=== PATIENT | female | born 1965 | race Caucasian/White ===

== ENCOUNTER → 2016-09-11 | Outpatient (CLI) | payer BC, OTHER ==
--- NOTE | 2016-09-14 08:13 | MM ---
Reason for exam: follow-up at short interval from prior study. Last mammogram was performed 1 year and 6 months ago. History: Family history of breast cancer in maternal grandmother and breast cancer in mother at age 67. Benign left mammotome panel of the left breast, January 22, 2010. Physical Findings: Nurse did not find any significant physical abnormalities on exam. MG 3D Diag Mammo W/Cad LT CC and MLO view(s) were taken of the left breast. Prior study comparison: March 08, 2015, left breast MG work up mamm w CAD LT. March 01, 2015, bilateral MG screening mammo w CAD. The breast tissue is heterogeneously dense. This may lower the sensitivity of mammography. Previous ultrasound biopsy in the left breast. There is chronic nodularity in the left breast. No significant new findings when compared with previous films. These results were verbally communicated with the patient and result sheet given to the patient on 09/11/16. ASSESSMENT: Benign, BI-RAD 2 RECOMMENDATION: Routine screening mammogram of both breasts in 1 year.
== END | disposition home or self-care (01) ==
LOC: RADMAMWWP 10:15
PROVIDERS: ATTEND Family Medicine
DX: R92.8 Other abnormal and inconclusive findings on diagnostic imaging of breast (principal)
CPT/HCPCS: G0204; G0279

== ENCOUNTER → 2016-12-04 | Outpatient (CLI) | payer OTHER ==
--- NOTE | 2016-12-04 16:29 | CT ---
EXAMINATION TYPE: CT sinus wo con DATE OF EXAM: 12/04/2016 COMPARISON: NONE HISTORY: Chronic sinusitis CT DLP: [address] of the paranasal sinuses was performed in the axial and coronal planes. Bone and soft tissue settings are submitted. The paranasal sinuses demonstrate normal aeration and development. Minimal mucosal thickening right maxillary sinuses. Remaining maxillary sinuses and remaining paranas al sinuses are well aerated. The osteal meatal units are patent bilaterally. The nasal septum is mildly deviated from left to right. No bony destructive changes are seen within the field of view. IMPRESSION: Mild nasal septal deviation. Minimal mucosal thickening right maxillary sinus.
== END | disposition home or self-care (01) ==
LOC: RADCTMAIN 15:58
PROVIDERS: ATTEND Otolaryngology Facial Plastic Surgery
DX: J34.2 Deviated nasal septum (principal); J34.89 Other specified disorders of nose and nasal sinuses; J32.9 Chronic sinusitis, unspecified
CPT/HCPCS: 70486

== ENCOUNTER → 2017-09-09 | Outpatient (CLI) | payer OTHER ==
--- NOTE | 2017-09-09 10:23 | XR ---
Left knee HISTORY: Left knee pain 4 views of the left knee There is a small ossific density present at the lateral aspect of the left knee posteriorly, ankylosi s thought present at the level of the proximal fibula and tibia. Spurring is present at the patellofe moral joint and medial compartment with some joint space loss. No evident effusion. Ossific density a lso present anteriorly at the level of the lateral compartment. Bony excrescence also noted at the la teral aspect of the knee. IMPRESSION: Osteoarthritis. Probable postop changes, posttraumatic change. Consider synovial osteocho ndromatosis, loose body. Osteoarthritis.
--- NOTE | 2017-09-09 10:28 | XR ---
Lumbar spine HISTORY: Low back pain 3 views of the lumbar spine Lumbar vertebral bodies show preserved height. Minimal anterolisthesis grade 1 L4-5. Bone mineralizat ion is mildly reduced. There is multilevel spondylosis. Loss of disc height present L4-5, L5-S1. Scle rosis present in the posterior elements of the lower lumbar spine. Vascular calcifications are noted. There is a mild levoscoliosis centered at L3. Partial sacralization at L5. IMPRESSION: Degenerative disc disease, facet arthropathy and scoliosis.
== END | disposition home or self-care (01) ==
LOC: RADXRMAIN 08:29
PROVIDERS: ATTEND Nurse Practitioner Family
DX: M51.36 Other intervertebral disc degeneration, lumbar region (principal); M46.96 Unspecified inflammatory spondylopathy, lumbar region; M41.86 Other forms of scoliosis, lumbar region; M17.12 Unilateral primary osteoarthritis, left knee
CPT/HCPCS: 72100

== ENCOUNTER → 2018-05-16 | Outpatient (CLI) | payer OTHER | END | disposition home or self-care (01) | LOC: RADMRIMAIN 18:48 | PROVIDERS: ATTEND Physician Assistant | DX: Z53.9 Procedure and treatment not carried out, unspecified reason (principal) ==

== ENCOUNTER → 2020-06-13 | Outpatient (CLI) | payer MEDICARE ==
--- NOTE | 2020-06-14 10:43 | MM ---
Reason for exam: additional evaluation requested from prior study. Last mammogram was performed 3 years and 9 months ago. History: Family history of breast cancer in maternal grandmother and breast cancer in mother at age 67. Benign left mammotome panel of the left breast, January 22, 2010. Took hormonal contraceptives for 1 year beginning at age 15. Physical Findings: Nurse did not find any significant physical abnormalities on exam. MG 3D Diag Mammo W/Cad JACQUELIN Bilateral CC and MLO view(s) were taken. Prior study comparison: September 11, 2016, left breast MG 3d diag mammo w/cad LT. March 08, 2015, left breast MG work up mamm w CAD LT. The breast tissue is heterogeneously dense. This may lower the sensitivity of mammography. Previous mammotome biopsy in the left breast. There is no discrete abnormality including area of concern right breast 3-4 o'clock. These results were verbally communicated with the patient and result sheet given to the patient on 06/13/20. ASSESSMENT: Incomplete: need additional imaging evaluation, BI-RAD 0 RECOMMENDATION: Ultrasound of both breasts. (per order)
--- NOTE | 2020-06-14 10:46 | USB ---
Reason for exam: additional evaluation requested from abnormal screening. History: Family history of breast cancer in maternal grandmother and breast cancer in mother at age 67. Benign left mammotome panel of the left breast, January 22, 2010. Took hormonal contraceptives for 1 year beginning at age 15. US Breast BILAT Technologist: Merlyn Crenshaw Right complete breast ultrasound includes all four quadrants, the retroareolar region and axilla. Finding demonstrates a 0.6 x 0.5 x 0.3cm cystic lesion at 5 o'clock and a 0.9 x 1.0 x 0.4cm cystic lesion at 10 o'clock. Left complete breast ultrasound includes all four quadrants, the retroareolar region and axilla. Finding demonstrates a 0.3 x 0.3 x 0.2cm lesion too small to characterize at 12 o'clock and duct are seen. These results were verbally communicated with the patient and result sheet given to the patient on 06/13/20. ASSESSMENT: Probably benign, BI-RAD 3 RECOMMENDATION: Follow-up diagnostic mammogram and ultrasound of the left breast in 6 months.
== END | disposition home or self-care (01) ==
LOC: RADMAMWWP 13:35
PROVIDERS: ATTEND Family Medicine
DX: R92.8 Other abnormal and inconclusive findings on diagnostic imaging of breast (principal)
CPT/HCPCS: 77066; 76641; G0279; 77062

== ENCOUNTER → 2021-02-12 | Outpatient (CLI) | payer MEDICARE, OTHER ==
--- NOTE | 2021-02-12 12:27 | MM ---
Reason for exam: follow-up at short interval from prior study. Last mammogram was performed 8 months ago. History: Patient is postmenopausal. Family history of breast cancer in maternal grandmother and breast cancer in mother at age 67. Benign left mammotome panel of the left breast, January 22, 2010. Took hormonal contraceptives for 1 year beginning at age 15. Physical Findings: Nurse did not find any significant physical abnormalities on exam. MG 3D Diag Mammo W/Cad LT CC and MLO view(s) were taken of the left breast. Prior study comparison: June 13, 2020, bilateral MG 3d diag mammo w/cad JACQUELIN. September 11, 2016, left breast MG 3d diag mammo w/cad LT. March 01, 2015, bilateral MG screening mammo w CAD. The breast tissue is heterogeneously dense. This may lower the sensitivity of mammography. Previous mammotome biopsy in the left breast. No significant new findings when compared with previous films. These results were verbally communicated with the patient and result sheet given to the patient on 02/12/21. ASSESSMENT: Benign, BI-RAD 2 RECOMMENDATION: Routine screening mammogram of both breasts in 4 months. Back on schedule for June 2021.
--- NOTE | 2021-02-12 12:28 | USB ---
Reason for exam: follow-up at short interval from prior study. History: Patient is postmenopausal. Family history of breast cancer in maternal grandmother and breast cancer in mother at age 67. Benign left mammotome panel of the left breast, January 22, 2010. Took hormonal contraceptives for 1 year beginning at age 15. US Breast Limited LT Left limited breast ultrasound including focal area of concern, retroareolar and axilla demonstrates a 7 x 4 x 5mm cystic lesion at 12 o'clock and duct ectasia. These results were verbally communicated with the patient and result sheet given to the patient on 02/12/21. ASSESSMENT: Benign, BI-RAD 2 RECOMMENDATION: Routine screening mammogram of both breasts in 4 months. Back on schedule for June 2021.
== END | disposition home or self-care (01) ==
LOC: RADMAMWWP 08:55
PROVIDERS: ATTEND Family Medicine
DX: R92.8 Other abnormal and inconclusive findings on diagnostic imaging of breast (principal); Z80.3 Family history of malignant neoplasm of breast
CPT/HCPCS: 77065; 76642; G0279; 77061

== ENCOUNTER → 2021-07-24 | Outpatient (CLI) | payer MEDICARE, OTHER ==
--- NOTE | 2021-07-25 11:21 | MM ---
Reason for exam: additional evaluation requested from prior study. Last mammogram was performed 5 months ago. History: Patient is postmenopausal. Family history of breast cancer in maternal grandmother and breast cancer in mother at age 67. Benign left mammotome panel of the left breast, January 22, 2010. Took hormonal contraceptives for 1 year beginning at age 15. Physical Findings: Nurse did not find any significant physical abnormalities on exam. MG 3D Diag Mammo W/Cad JACQUELIN Bilateral CC and MLO view(s) were taken. Prior study comparison: February 12, 2021, left breast MG 3d diag mammo w/cad LT. June 13, 2020, bilateral MG 3d diag mammo w/cad JACQUELIN. Previous mammotome biopsy in the left breast. No significant new findings when compared with previous films. These results were verbally communicated with the patient and result sheet given to the patient on 07/24/21. ASSESSMENT: Benign, BI-RAD 2 RECOMMENDATION: Routine screening mammogram of both breasts in 1 year.
== END | disposition home or self-care (01) ==
LOC: RADMAMWWP 14:59
PROVIDERS: ATTEND Family Medicine
DX: R92.8 Other abnormal and inconclusive findings on diagnostic imaging of breast (principal)
CPT/HCPCS: 77066; G0279; 77062

== ENCOUNTER 2022-06-04 06:56 | Day surgery (SDC) | payer MEDICARE, OTHER ==
[2022-06-02 12:32] VITALS: BMI 32.9
[2022-06-04] MEDS ORDERED: LIDOCAINE 1% (10MG/ML) FOR IV START INTRADERMA PRN (07:21)
[2022-06-04] MEDS: LACTATED RINGERS 1,000 ML IV SCH ×2 (07:28→07:39)
[2022-06-04 07:33] LABS: Glucose,Whole Blood 216 mg/dL (70-110)
[2022-06-04 07:35] VITALS: TEMP 97.3
[2022-06-04] MEDS ORDERED: PROPOFOL 10 MG/ML 20 ML VIAL IV ONE (07:40)
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
--- NOTE | 2022-06-04 08:07 | P.OP ---
Date of Procedure: 06/04/22 Preoperative Diagnosis: Diarrhea Postoperative Diagnosis: Colon polyp Procedure(s) Performed: Colonoscopy Anesthesia: MAC Surgeon: Sean Jones Pathology: other (Left colon polyp, rectal polyp) Condition: stable Disposition: PACU Description of Procedure: The patient's placed on the endoscopy table in the lateral position. She received IV sedation. Digital rectal exam was performed. This revealed no abnormalities. Flexible colonoscope was then placed patient anus and passed throughout the entire colon. The ileocecal valve was visualized. The cecum, ascending and transverse colon appeared normal. The descending colon was visualized. There was a small sessile polyp seen was removed the cold forcep. He sigmoid: Gen. Scope was brought back the rectum and this appeared normal. There is no evidence of any inflammatory changes. Another small polyp was seen. This removed the cold forcep. Scope was withdrawn for patient.
[2022-06-04] MEDS ORDERED: hydrALAZINE HCL 20 MG/ML 1 ML VIAL ONE ×2 (08:27→08:58)
[2022-06-04] MEDS ORDERED: hydrALAZINE HCL 20 MG/ML 1 ML VIAL IV ONE ×2 (08:28→08:59)
[2022-06-04 08:41] VITALS: RESP 16
[2022-06-04] MEDS ORDERED: ONDANSETRON 4 MG/2 ML VIAL ONE (09:16)
[2022-06-04] MEDS ORDERED: METOCLOPRAMIDE 5 MG/ML 2 ML VIAL IVP ONE (09:21)
[2022-06-04] MEDS ORDERED: ONDANSETRON 4 MG/2 ML VIAL IVP ONE (09:21)
[2022-06-04 09:45] VITALS: BP 167/89; PULSE 94
== END 2022-06-04 10:02 | disposition home or self-care (01) ==
LOC: ORWHC2ENDO 06:56
PROVIDERS: ATTEND Surgery
DX: K62.1 Rectal polyp (principal); K63.5 Polyp of colon; R19.7 Diarrhea, unspecified; E11.43 Type 2 diabetes mellitus with diabetic autonomic (poly)neuropathy; K21.9 Gastro-esophageal reflux disease without esophagitis; E78.5 Hyperlipidemia, unspecified; I10 Essential (primary) hypertension; F10.90 Alcohol use, unspecified, uncomplicated; F12.90 Cannabis use, unspecified, uncomplicated; M19.90 Unspecified osteoarthritis, unspecified site; G43.909 Migraine, unspecified, not intractable, without status migrainosus; Z98.51 Tubal ligation status; Z98.890 Other specified postprocedural states; Z87.891 Personal history of nicotine dependence; Z80.3 Family history of malignant neoplasm of breast; Z79.4 Long term (current) use of insulin; Z79.1 Long term (current) use of non-steroidal anti-inflammatories (NSAID); Z79.899 Other long term (current) drug therapy; Z79.84 Long term (current) use of oral hypoglycemic drugs; Z88.5 Allergy status to narcotic agent
CPT/HCPCS: 45380; J0360; J2765; J2405; J2704; 88305

== ENCOUNTER → 2023-09-30 | Outpatient (CLI) | payer MEDICARE, OTHER ==
--- NOTE | 2023-09-30 07:29 | MM ---
Reason for Exam: Follow-up at short interval from prior study. Last screening mammogram was performed 12 month(s) ago. Patient History: Menarche at age 12. First Full-Term at age 16. Postmenopausal. Hormonal Contraceptives, starting at age 15 for 1 year. 01/22/2010, Benign Core Biopsy on the left side. Maternal grandmother had breast cancer, right, age 68. Mother had breast cancer, left, age 67. Risk Values: Marisabel 5 year model risk: 2.8%. NCI Lifetime model risk: 16.5%. Tissue Density: The breasts are heterogeneously dense, which may obscure small masses. Findings: Analyzed By CAD. Pattern appears symmetrical. Benign calcifications are present within the right and left breast. Benign vascular calcifications are present bilaterally There is a 0.7 cm oval density with partially obscured margins in the upper inner left breast 9 cm from the nipple. Additional workup with ultrasound is recommended. Right breast:No suspicious groups of microcalcifications, spiculated or lobular masses, architectural distortion or other secondary signs of malignancy are mammographically apparent. Overall Assessment: Incomplete: need additional imaging evaluation, BI-RAD 0 Management: Diagnostic Breast Ultrasound of the left breast. A negative mammogram report should not preclude additional follow up of suspicious palpable abnormalities. Patient should continue monthly self breast exam. A clinical breast exam by your physician is recommended on an annual basis and results should be correlated with mammographic findings. Electronically signed and approved by: Tra Pelletier D.O. Radiologis
--- NOTE | 2023-09-30 08:36 | USB ---
Reason for Exam: Mammographic abnormality. Patient History: Menarche at age 12. First Full-Term at age 16. Postmenopausal. Hormonal Contraceptives, starting at age 15 for 1 year. 01/22/2010, Benign Core Biopsy on the left side. Maternal grandmother had breast cancer, right, age 68. Mother had breast cancer, left, age 67. Risk Values: Marisabel 5 year model risk: 2.8%. NCI Lifetime model risk: 16.5%. Technique: Method: Targeted. Prior Study Comparison: 02/12/2021 Left Diagnostic Mammogram, [facility]. 07/24/2021 Bilateral Diagnostic Mammogram, [facility]. 09/02/2022 Bilateral MG 3D diag mammo w/cad JACQUELIN, [facility]. Findings: The upper inner quadrant of the left breast, the axilla of the left breast and the retroareolar of the left breast were scanned. At the 12:00 position 9 cm from nipple there is a hypoechoic area measuring 0.7 x 0.6 x 0.3 cm. This area appears to be present previously and is stable. This potentially could correlate with the mammographic finding. Overall Assessment: Probably benign, BI-RAD 3 Management: Diagnostic Mammogram of the left breast in 6 months. Diagnostic Breast Ultrasound of the left breast in 6 months. A clinical breast exam by your physician is recommended on an annual basis and results should be correlated with mammographic findings. This exam should not preclude additional follow-up of suspicious palpable abnormalities. Results were given to the patient verbally at the time of exam. Electronically signed and approved by: Tra Pelletier D.O. Radiologis
== END | disposition home or self-care (01) ==
LOC: RADMAMWWP 06:46
PROVIDERS: ATTEND Family Medicine
DX: R92.333 Mammographic heterogeneous density, bilateral breasts (principal); R92.1 Mammographic calcification found on diagnostic imaging of breast; Z80.3 Family history of malignant neoplasm of breast; Z78.0 Asymptomatic menopausal state
CPT/HCPCS: 77066; 76642; G0279; 77062

== ENCOUNTER 2024-03-10 10:38 | Day surgery (SDC) | payer MEDICARE ==
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
[~2024-03-10 10:38] MED LIST: LIDOCAINE 1% (10MG/ML) FOR IV START INTRADERMA PRN; MIDAZOLAM 2 MG/2 ML VIAL IV PRN; Pre Op ABX Message 1 EACH MISC MISCELLANE ONE; fentaNYL (PF) 50 MCG/ML 2 ML AMP IV PRN
[2024-03-10 11:15] VITALS: RESP 16; TEMP 97.7
[2024-03-10 11:29] LABS: Glucose,Whole Blood 196 mg/dL (70-110)
[2024-03-10] MEDS: IV FLUID CONTINUATION 1,000 ML IV ONE (11:31)
[2024-03-10] MEDS: LACTATED RINGERS 1,000 ML IV SCH (11:32)
[2024-03-10] MEDS: DEXAMETHASONE SOD PHOSPHATE 4 MG/ML 1 ML VIAL IV ONE (11:33)
[2024-03-10] MEDS: ONDANSETRON 4 MG/2 ML VIAL IVP ONE (11:33)
[2024-03-10] MEDS ORDERED: fentaNYL (PF) 50 MCG/ML 2 ML AMP ONE (12:15)
[2024-03-10] MEDS ORDERED: PROPOFOL 10 MG/ML 20 ML VIAL IV ONE (12:15)
[2024-03-10] MEDS ORDERED: MIDAZOLAM 2 MG/2 ML VIAL ONE (12:15)
[2024-03-10] MEDS: OFLOXACIN 0.3% OPHTH DROPS 5 ML BOTTLE RIGHT EAR ONE ×2 (12:25→12:30)
[2024-03-10 12:49] LABS: Glucose,Whole Blood 151 mg/dL (70-110)
[2024-03-10 13:12] VITALS: BP 150/82; PULSE 93
--- NOTE | 2024-03-12 20:28 | OP ---
OPERATIVE REPORT DATE OF SERVICE : 03/10/2024 PREOPERATIVE DIAGNOSIS: Chronic right serous otitis media. POSTOPERATIVE DIAGNOSIS: Chronic right serous otitis media. ANESTHESIA: IV sedation with MAC. PROCEDURE PERFORMED: Right myringotomy with insertion of a plastic Marcin-bobbin type ventilation tube. COMPLICATIONS: None. ESTIMATED BLOOD LOSS: Zero. DESCRIPTION OF PROCEDURE: The patient was placed on the operating table in supine position. After uneventful IV sedation, satisfactory sedation was obtained. Next, using a #3 aural speculum and the Zeiss operating microscope, the right external auditory canal was cleansed of all wax and debris. Next, using the myringotomy knife, an incision was made in the anterior- inferior quadrant of the right tympanic membrane. The middle ear space was suctioned free of all fluid. Next, a plastic Marcin-bobbin ventilation tube was inserted through the previously made myringotomy incision without difficulty. At this point, the procedure was terminated. There were no intraoperative complications. The patient tolerated the procedure well and was returned to the recovery room in satisfactory condition. MMODL / IJN: [id number] /
== END 2024-03-10 13:25 | disposition home or self-care (01) ==
LOC: OR 10:38
PROVIDERS: ATTEND Otolaryngology
DX: H65.21 Chronic serous otitis media, right ear (principal); Z98.51 Tubal ligation status; Z90.89 Acquired absence of other organs

== ENCOUNTER → 2024-04-05 | Outpatient (CLI) | payer MEDICARE, OTHER ==
--- NOTE | 2024-04-05 08:32 | MM ---
Reason for Exam: Follow-up at short interval from prior study. Last screening mammogram was performed 7 month(s) ago. Patient History: Menarche at age 12. First Full-Term at age 16. Postmenopausal. Hormonal Contraceptives, starting at age 15 for 1 year. 01/22/2010, Benign Core Biopsy on the left side. Maternal grandmother had breast cancer, right, age 68. Mother had breast cancer, left, age 67. Risk Values: Marisabel 5 year model risk: 2.9%. NCI Lifetime model risk: 16.1%. Tissue Density: The breasts are heterogeneously dense, which may obscure small masses. Findings: Analyzed By CAD. Nodular density left 12:00 position redemonstrated. No new nodules or masses seen. Benign calcifications identified without suspicious cluster. Overall Assessment: Incomplete: need additional imaging evaluation, BI-RAD 0 Management: Diagnostic Breast Ultrasound of the left breast. . Results were given to the patient verbally at the time of exam. Patient should continue monthly self-breast exams. A clinical breast exam by your physician is recommended on an annual basis. This exam should not preclude additional follow-up of suspicious palpable abnormalities. Note on Marisabel scores and lifetime risk: 1. A Marisabel score greater than 3% is considered moderate risk. If this is the case, consider specialist referral to assess eligibility for a risk reducing agent. 2. If overall lifetime risk for the development of breast cancer is 20% or higher, the patient may qualify for future screening with alternating mammogram and breast MRI. [facility], , 04/05/2024 8:26 AM. Electronically signed and approved by: Chriss Perez M.D. Radiologis
--- NOTE | 2024-04-05 08:49 | USB ---
Reason for Exam: Follow-up at short interval from prior study. Patient History: Menarche at age 12. First Full-Term at age 16. Postmenopausal. Hormonal Contraceptives, starting at age 15 for 1 year. 01/22/2010, Benign Core Biopsy on the left side. Maternal grandmother had breast cancer, right, age 68. Mother had breast cancer, left, age 67. Risk Values: Marisabel 5 year model risk: 2.9%. NCI Lifetime model risk: 16.1%. Technique: Method: Targeted. Doppler: Color. Patient Position: Supine. Prior Study Comparison: 07/24/2021 Bilateral Diagnostic Mammogram, [facility]. 09/02/2022 Bilateral MG 3D diag mammo w/cad JACQUELIN, [facility]. 09/30/2023 Bilateral MG 3D diag mammo w/cad JACQUELIN, [facility]. Findings: The upper section of the breast of the left breast, the axilla of the left breast and the retroareolar of the left breast were scanned. Stable cystic lesion at the left 12:00 position remain stable dating back to 02/12/2021. Current measurement is 6 x 4 mm 7 x 4 mm in 2020 and 6 x 4 mm and 09/30/2023. No solid masses are detected.. Overall Assessment: Benign, BI-RAD 2 Management: Screening Mammogram of both breasts in 1 year. A clinical breast exam by your physician is recommended on an annual basis and results should be correlated with mammographic findings. This exam should not preclude additional follow-up of suspicious palpable abnormalities. Results were given to the patient verbally at the time of exam. [facility], , 04/05/2024 8:46 AM. Electronically signed and approved by: Chriss Perez M.D. Radiologis
== END | disposition home or self-care (01) ==
LOC: RADMAMWWP 07:54
PROVIDERS: ATTEND Family Medicine
DX: R92.8 Other abnormal and inconclusive findings on diagnostic imaging of breast
CPT/HCPCS: 77062; 77066

== ENCOUNTER 2024-06-07 11:05 | Day surgery (SDC) | payer MEDICARE ==
[~2024-06-07 11:05] MED LIST changes: -MIDAZOLAM 2 MG/2 ML VIAL IV PRN; -Pre Op ABX Message 1 EACH MISC MISCELLANE ONE; -fentaNYL (PF) 50 MCG/ML 2 ML AMP IV PRN
[2024-06-07 11:46] VITALS: TEMP 97.7
[2024-06-07] MEDS: LACTATED RINGERS 1,000 ML IV SCH (11:46)
[2024-06-07] MEDS: ONDANSETRON 4 MG/2 ML VIAL IVP STA (11:46)
[2024-06-07] MEDS: IV FLUID CONTINUATION 1,000 ML IV ONE ×2 (11:47→12:17)
[2024-06-07 11:56] LABS: Glucose,Whole Blood 217 mg/dL (70-110)
[2024-06-07] MEDS ORDERED: PROPOFOL 10 MG/ML 20 ML VIAL IV ONE (12:18)
[2024-06-07] MEDS ORDERED: LIDOCAINE 1% INJ 10MG/ML (20 ML MDV) ONE (12:18)
--- NOTE | 2024-06-07 12:31 | P.PCN ---
Date of Procedure: 06/07/24 Procedure(s) Performed: BRIEF HISTORY: Patient is a 58-year-old, pleasant, white female skilled for an upper endoscopy as a part evaluation of longstanding history of GERD/intermittent nausea vomiting. Presently on Protonix 40 mg daily as well as Reglan and scopolamine patch for the nausea PROCEDURE PERFORMED: Esophagogastroduodenoscopy with biopsy. PREOPERATIVE DIAGNOSIS: GERD/intermittent nausea vomiting. IV sedation per anesthesia. PROCEDURE: After informed consent was obtained, the patient was brought into the endoscopy unit. IV sedation was administered by Anesthesia under continuous monitoring. Initially the Olympus GIF-140 video endoscope was inserted into the mouth. Esophagus intubated without any difficulty. It was gradually advanced into the stomach and duodenum and carefully examined. The bulb mild duodenitis and the second part of the duodenum appeared normal. These were done from the second part of the duodenum to evaluate for celiac disease the scope at this time was withdrawn to the stomach, adequately insufflated with air, and upon careful examination, mucosa of the antrum, linear areas of erythema consistent with gastritis and biopsies were done from this area. Mucosa of the body, cardia and the fundus appeared normal. The scope was then withdrawn into the esophagus. Mild to moderate size hiatal hernia noted. The GE junction was located at 39 cm from the incisors. The esophagus appeared normal. There were no erosions or ulcerations seen, biopsies were done from the distal esophagus and the patient tolerated the procedure well. IMPRESSION: 1. Mild antral gastritis. 2. Small to moderate size hiatal hernia. RECOMMENDATIONS: The findings of this examination were discussed with the patient as well as her family. She was advised to follow with the biopsy results. Continue with Protonix 40 mg daily and antiemetics as needed.
[2024-06-07 12:41] VITALS: RESP 16
[2024-06-07 12:47] LABS: Glucose,Whole Blood 189 mg/dL (70-110)
[2024-06-07 12:58] VITALS: BP 151/89
[2024-06-07 13:03] VITALS: PULSE 87
== END 2024-06-07 13:30 | disposition home or self-care (01) ==
LOC: ORWHC2ENDO 11:05
PROVIDERS: ATTEND Internal Medicine Gastroenterology
DX: K29.50 Unspecified chronic gastritis without bleeding (principal); K21.00 Gastro-esophageal reflux disease with esophagitis, without bleeding; K31.9 Disease of stomach and duodenum, unspecified; K44.9 Diaphragmatic hernia without obstruction or gangrene; I10 Essential (primary) hypertension; E78.5 Hyperlipidemia, unspecified; G47.33 Obstructive sleep apnea (adult) (pediatric); G43.909 Migraine, unspecified, not intractable, without status migrainosus; K21.9 Gastro-esophageal reflux disease without esophagitis; Z99.81 Dependence on supplemental oxygen; Z79.84 Long term (current) use of oral hypoglycemic drugs; Z88.5 Allergy status to narcotic agent; Z88.8 Allergy status to other drugs, medicaments and biological substances; Z79.899 Other long term (current) drug therapy; Z87.891 Personal history of nicotine dependence
CPT/HCPCS: 43239; J2405; J2003; J2704; 88305